=== PATIENT | female | born 1945 | race Native Hawaiian/Other Pacific Islander ===

== ENCOUNTER 2019-05-29 15:05 | Emergency (ER) | payer OTHER ==
[~2019-05-29] VITALS: Ht 157.5 cm; Wt 71.7 kg
[2019-05-29 15:17] VITALS: BP 153/87; TEMP 98.7
== END 2019-05-29 17:35 | disposition home or self-care (01) ==
LOC: ED 15:05
DX: K04.7 Periapical abscess without sinus (principal)
CPT/HCPCS: 96372; 99283; J1885; J2930